=== PATIENT | male | born 1955 | race Caucasian/White ===

== ENCOUNTER 2018-11-25 06:35 | Day surgery (SDC) | payer OTHER, BC ==
[~2018-11-25] VITALS: Ht 182.9 cm; Wt 88.5 kg
[2018-11-25 07:19] VITALS: BP 136/75
[2018-11-25 11:31] VITALS: BP 109/71
== END 2018-11-25 10:45 | disposition home or self-care (01) ==
LOC: DS 06:35 → GI 07:30 → OR 07:30 → DS 10:45
DX: Z12.11 Encounter for screening for malignant neoplasm of colon (principal); K57.30 Diverticulosis of large intestine without perforation or abscess without bleeding; K63.89 Other specified diseases of intestine; E78.00 Pure hypercholesterolemia, unspecified; I25.10 Atherosclerotic heart disease of native coronary artery without angina pectoris; Z80.0 Family history of malignant neoplasm of digestive organs; Z88.2 Allergy status to sulfonamides; Z79.82 Long term (current) use of aspirin; Z79.899 Other long term (current) drug therapy; Z85.89 Personal history of malignant neoplasm of other organs and systems; Z98.890 Other specified postprocedural states
CPT/HCPCS: 45378; 99153; J1200; J1610; J2250; J2310; J3010; J3490